=== PATIENT | female | born 1980 | race Hispanic/Latino ===

== ENCOUNTER 2017-11-01 10:52 | Outpatient (CLI) | payer BC | END 2017-11-01 10:53 | disposition home or self-care (01) | LOC: BICULT 10:52 | PROVIDERS: ATTEND Family Medicine | DX: Z3A.17 17 weeks gestation of pregnancy (principal) | CPT/HCPCS: 76805 ==

== ENCOUNTER 2018-03-10 17:24 | Inpatient (IN) | payer BC ==
[2018-03-10] MEDS ORDERED: Misoprostol 200 MCG TAB PR PRN (18:08)
[2018-03-10] MEDS ORDERED: NS / Oxytocin 40 units/1000ml 1,000 ML IV PRN (18:08)
[2018-03-10] MEDS ORDERED: Lidocaine 1% (PF) 30 ML VIAL SC PRN (18:08)
[2018-03-10] MEDS ORDERED: Promethazine HCl 25 MG/ML VIAL IM PRN (18:08)
[2018-03-10] MEDS ORDERED: Ibuprofen 800 MG TAB PO PRN (18:08)
[2018-03-10] MEDS ORDERED: Ondansetron HCl/PF 4 MG/2 ML Vial IVP PRN (18:08)
[2018-03-10] MEDS ORDERED: HYDROcodone/Acetaminophen 5/325 mg Tablet PO PRN ×3 (18:08→22:07)
[2018-03-10] MEDS ORDERED: NS / Oxytocin 40 units/1000ml 1,000 ML ONE (18:09)
[2018-03-10] MEDS ORDERED: Lidocaine 1% (PF) 30 ML VIAL ONE (18:09)
[2018-03-10 18:19] LABS: Hemoglobin 14.8 g/dL (12.0-16.0); Mean Corpuscular HGB CONC 34.5 g/dL (32.0-36.0); Mean Corpuscular Hemoglobin 29.6 pg (27.0-31.0); Mean Corpuscular Volume 85.8 fL (78.0-98.0); Mean Platelet Volume 11.1 fL (7.4-10.4); Platelet Count 175 thou/uL (130-400); RBC Distribution Width 14.4 % (11.5-14.5); Red Blood Cell (RBC) Count 4.98 mill/uL (4.20-5.40); White Blood Cell (WBC) Count 11.2 thou/uL (4.8-10.8)
[2018-03-10 18:29] VITALS: BMI 41.4
[2018-03-10 18:58] LABS: HBSAg Index 0.15 S/CO (0-0.99); Hep B Surf Ag Non-Reactive S/CO (NonReactive); Syphilis Antibody Nonreactive (Nonreactive); Syphilis Antibody Index 0.03 S/CO (<1.00 Non-Reactive)
[2018-03-10] MEDS ORDERED: Adacel (T-DAP) 0.5 ML VIAL IM ONE (20:39)
[2018-03-10] MEDS ORDERED: Lanolin Ointment 7 GM TUBE TOP PRN (20:39)
[2018-03-10] MEDS ORDERED: Milk Of Magnesia 30 ML UDCUP PO PRN (20:39)
[2018-03-10] MEDS ORDERED: Bisacodyl 10 MG SUPP PR PRN (20:39)
[2018-03-10] MEDS ORDERED: NS / Oxytocin 40 units/1000ml 1,000 ML IV SCH (20:39)
[2018-03-10] MEDS: Ibuprofen 800 MG TAB PO PRN (22:32)
[2018-03-10] MEDS: Docusate Calcium (SURFAK) 240 MG CAP PO SCH (22:32)
--- NOTE | 2018-03-11 03:17 | OP ---
PREOPERATIVE DIAGNOSIS: Term . POSTOPERATIVE DIAGNOSIS: Term . PROCEDURE: Spontaneous vaginal delivery with repair of first degree midline episiotomy. SURGEON: Jerry Chapman M.D. PROCEDURE: This 38-year-old female G4, P3 taken to delivery room, gemma and kye kessler. Prepped and draped sterilely. Delivered a baby boy with Apgars 9 at 1 minute and 9 at 5 minutes. Baby did breathe and cry vigorously upon delivery. Delivered the placenta, 3-vessel intact. Estim ated blood loss was 200 mL. Mother and baby did very well. First degree laceration was repaired wit h 3-0 chromic.
[2018-03-11] MEDS: Ibuprofen 800 MG TAB PO PRN ×2 (05:18→15:20)
[2018-03-11 05:34] LABS: Hemoglobin 12.2 g/dL (12.0-16.0); Mean Corpuscular Hemoglobin 28.7 pg (27.0-31.0); Mean Corpuscular Volume 86.8 fL (78.0-98.0); Mean Platelet Volume 10.6 fL (7.4-10.4); Platelet Count 151 thou/uL (130-400); RBC Distribution Width 14.3 % (11.5-14.5); Red Blood Cell (RBC) Count 4.26 mill/uL (4.20-5.40); White Blood Cell (WBC) Count 10.9 thou/uL (4.8-10.8)
[2018-03-11] MEDS ORDERED: Prenatal Vitamin 1 TAB PO SCH (09:00)
[2018-03-11] MEDS: Docusate Calcium (SURFAK) 240 MG CAP PO SCH (09:10)
[2018-03-11] MEDS: Ferrous Sulfate 325 MG TAB PO SCH ×2 (09:12→19:19)
[2018-03-11 17:59] VITALS: BP 115/65; TEMP 97.8
== END 2018-03-11 19:50 | disposition home or self-care (01) | DRG 775 ==
LOC: L&D/OP 17:24 → L&D 18:35 → 3SW 21:07
PROVIDERS: ADMIT Family Medicine; ATTEND Family Medicine
PROC: 10907ZC Drainage of Amniotic Fluid, Therapeutic from Products of Conception, Via Natural or Artificial Opening (ICD-10-PCS; principal; 2018-03-10)
PROC: 10E0XZZ Delivery of Products of Conception, External Approach (ICD-10-PCS; 2018-03-10)
PROC: 0W8NXZZ Division of Female Perineum, External Approach (ICD-10-PCS; 2018-03-10)
DX: O69.81X0 Labor and delivery complicated by cord around neck, without compression, not applicable or unspecified (principal); Z3A.39 39 weeks gestation of pregnancy; Z37.0 Single live birth
CPT/HCPCS: 36415; 85027; 86780; 86850; 86900; 86901; 87340; 90715; 99285; J2001